=== PATIENT | female | born 1980 | race African-American/Black ===

== ENCOUNTER 2018-04-19 05:24 | Observation (INO) | payer OTHER ==
[2018-03-27 14:57] LABS: BASOPHILS # (AUTO) 0.1 (0.0-0.1); EOSINOPHILS # (AUTO) 0.2 (0.0-0.4); EOSINOPHILS % 2.9 % (0.0-6.0); HEMOGLOBIN 8.3 g/dL (12.0-16.0); LYMPHOCYTES # (AUTO) 1.8 (1.0-3.2); LYMPHOCYTES % 24.3 % (18.0-39.1); MEAN CORPUSCULAR HEMOGLOBIN 20.8 pg (28-32); MEAN CORPUSCULAR HGB CONC 29.6 g/dL (31-35); MONOCYTES # (AUTO) 0.6 (0.2-0.8); MONOCYTES % 8.4 % (4.4-11.3); NEUTROPHILS # (AUTO) 4.6 (2.1-6.9); NEUTROPHILS % 63.1 % (38.7-80.0); PLATELET COUNT 286 x10e3/uL (140-360); RED CELL DISTRIBUTION WIDTH 18.5 % (11.7-14.4)
[2018-03-27 15:17] LABS: ALANINE AMINOTRANSFERASE 12 IU/L (0-55); ALBUMIN 4.2 g/dL (3.5-5.0); ALKALINE PHOSPHATASE 77 IU/L (40-150); ANION GAP 12.6 mmol/L (8-16); BLOOD UREA NITROGEN 17 mg/dL (7-26); BUN/CREATININE RATIO 18 (6-25); CALCIUM 9.3 mg/dL (8.4-10.2); CARBON DIOXIDE 24 mmol/L (22-29); CHLORIDE 106 mmol/L (98-107); CREATININE, SERUM 0.94 mg/dL (0.57-1.11); EST GLOMERULAR FILTRATION RATE > 60 ML/MIN (60-); GLUCOSE 86 mg/dL (74-118); POTASSIUM 3.6 mmol/L (3.5-5.1); SODIUM 139 mmol/L (136-145)
[~2018-04-19] VITALS: Ht 182.9 cm; Wt 97.5 kg
--- OUTSIDE RECORDS SUMMARY | 2018-04-19 05:26 | XMS REPORT | Clinical Summary ---
Author Author [facility] Address Unknown Phone Unavailable Care Team Providers Care Family Resource Management Professor Name Role Phone Amy PCP Allergies Comments Active Allergy Reactions Severity Noted Date Meperidine 10/29/2016 Metronidazole 10/29/2016 Medications End Date Status Medication Sig Dispensed Refills Start Date Active ferrous sulfate 325 (65 Take 325 mg 0 FE) MG tablet by mouth daily with breakfast. Active phentermine 37.5 MG Take 37.5 mg 0 capsule by mouth every morning. Active Problems Not on file Social History Date Tobacco Use Types Packs/Day Years Used Never Smoker Smokeless Tobacco: Never Used Alcohol Use Drinks/Week oz/Week Comments Yes occassionally Sex Assigned at Date Recorded Not on file Industry Job Start Date Occupation Not on file Not on file Not on file Travel End Travel History Travel Start No recent travel history available. Last Filed Vital Signs Not on file Plan of Treatment Not on file Results Not on fileafter 04/18/2017 Insurance Payer Benefit Subscriber ID Type Phone Address Plan / Group [place] [facility] [employer] E EXCHANGE
--- OUTSIDE RECORDS SUMMARY | 2018-04-19 05:26 | XMS REPORT ---
Author Author [facility] Address Unknown Phone Unavailable Care Team Providers Care Ramp Service Agent Name Role Phone UNKNOWN, REFFERING PP Unavailable MICHELLE HONEYCUTT Unavailable Unavailable Problems This patient has no known problems. Allergies, Adverse Reactions, Alerts This patient has no known allergies or adverse reactions. Medications This patient has no known medications. Results Test Description Test Time Test Comments Text Results Atomic Results Result Comments CBC with Differential 2016-09-13 20:16:00 WBC (test code=WBC) 6.3 K/cumm 4.4-10.5 RBC (test code=RBC) 4.09 M/cumm 3.75-5.20 Hemoglobin (test code=HGB) 8.9 gm/dL 12.2-14.8 Hematocrit (test code=HCT) 30.6 % 36.5-44.4 MCV (test code=MCV) 74.8 fL 80-100 MCH (test code=MCH) 21.9 pg 27.0-32.5 MCHC (test code=MCHC) 29.3 g/dL 32.0-37.5 RDW (test code=RDW) 17.5 % 11.5-14.5 Platelet Count (test code=PLTCT) 275 K/cumm 140-440 MPV (test code=MPV) 8.7 fL Diff Method (test code=DIFFM) Manual Neutrophil (test code=NEUT) 69.0 % 36-70 Lymphocyte (test code=LYMPH) 20.3 % 12-44 Monocyte (test code=MONO) 8.8 % 0-11 Eosinophil (test code=EOS) 1.4 % 0-7 Basophil (test code=BASO) 0.6 % 0-2 Neutro Abs (test code=ANEUT) 4.3 K/cumm 1.6-7.4 Lymph Abs (test code=ALYMPH) 1.3 K/cumm 0.5-4.6 Elk Abs (test code=AMONO) 0.5 K/cumm 0.0-1.2 Eos Abs (test code=AEOS) 0.08 K/cumm 0.00-0.74 Baso Abs (test code=ABASO) 0.0 K/cumm 0.00-0.21 RBC Morphology (test code=RBCMRPH) Marked Hypochromia Microcytosis (test code=MICRO) Slight Hypochromic (test code=HYPO) Marked Platelet Est (test code=PLTEST) Normal Platelet on Smear
[2018-04-19] MEDS ORDERED: BUPIVACAINE 0.5%/EPI 30 ML SDV INJ ONE (06:52)
[2018-04-19] MEDS ORDERED: SODIUM CHLORIDE 0.9% 100 ML 100 ML IV ONE (07:08)
[2018-04-19] MEDS ORDERED: VASOPRESSIN INJ 20 UNIT/ML VIAL IV ONE (07:09)
[2018-04-19] MEDS ORDERED: METHYLENE BLUE 1% INJ 10 ML VIAL INJ ONE (07:31)
[2018-04-19] MEDS ORDERED: ONDANSETRON HCL INJ 2 MG/ML VIAL IV PRN (08:15)
[2018-04-19] MEDS ORDERED: ACETAMINOPHEN 325 MG TAB PO PRN (08:15)
[2018-04-19] MEDS ORDERED: MEPERIDINE HCL INJ 25 MG/ML VIAL IV PRN (08:15)
[2018-04-19] MEDS ORDERED: KETOROLAC TROMETHAMINE 30 MG/ML VIAL IM PRN (08:15)
[2018-04-19] MEDS ORDERED: KETOROLAC TROMETHAMINE 30 MG/ML VIAL ONE (10:57)
--- OUTSIDE RECORDS SUMMARY | 2018-04-19 11:01 | XMS REPORT | Clinical Summary ---
Author Author [facility] Address Unknown Phone Unavailable Care Team Providers Care Banana Grader Name Role Phone Amy PCP Allergies Comments [...] Type Phone Address Plan / Group [place] [facility] x[facility]x [employer] E EXCHANGE
--- NOTE | 2018-04-19 11:06 | NUR ---
RECEIVED REPORT FROM SAAD IN PACU. AWAITING FOR PT TO ARRIVE TO UNIT
--- NOTE | 2018-04-19 11:30 | NUR ---
RECEIVED PT TO FLOOR AA0X3. PT COMPLAINTS OF PAIN TO THE LOWER ABD 9/10 RECEIVED PAIN MED PER PACU NURSE . PT HAS AN IV TO THE LEFT AC 20 WITH LR IN 125CC.HR SITE IS CLEAN AND DRY PT HAS A [place] CATH DRAINING CLEAR YELLOW URINE PT HAS A CATHETER TO HER UTERUS COLLECTING INTO LEG BAG (MINIMAL BLOOD PRESENT) ASSISTED PT TO RR. PT HAS A BM. WILL CONTINUE TO CARE FOR PT AT THIS TIME SIDE RAILSX2, BED WHEELS LOCKED ,CALL LIGHT IS WITHIN EASY REACH, INSTRUCTED TO CALL FOR ASSISTANCE IF NEEDED
[2018-04-19 11:55] VITALS: BP 123/57
[2018-04-19 12:01] VITALS: BP 123/57
[2018-04-19] MEDS: LACTATED RINGER'S 1,000 ML IV SCH ×2 (12:26→16:43)
[2018-04-19] MEDS: HYDROCODONE/APAP 5MG-325MG TAB PO PRN (12:26)
--- NOTE | 2018-04-19 12:38 | Operative Report ---
DATE OF PROCEDURE: April 19, 2018 PREOPERATIVE DIAGNOSES 1. Dysmenorrhea. 2. Abnormal uterine bleeding. 3. Requesting reversal of tubal ligation. POSTOPERATIVE DIAGNOSES 1. Dysmenorrhea. 2. Abnormal uterine bleeding. 3. Requesting reversal of tubal ligation. PROCEDURES 1. Hysteroscopy. 2. Hysteroscopic myomectomy. 3. Reversal of tubal ligation. COMPLICATIONS: None. ESTIMATED BLOOD LOSS: 50 mL. DESCRIPTION OF PROCEDURE: The patient was taken to the OR, where general anesthesia was placed. She was prepped and draped in the normal sterile fashion. She was placed in the dorsal lithotomy position. After examination under anesthesia, a HUMI self-retaining uterine manipulator was passed through the cervix into the uterine cavity and connected to diluted methylene blue. A Pfannenstiel skin incision was made with the scalpel along the line of her previous section scar. Subcutaneous tissue was dissected with a hemostat. An Ron retractor was placed after opening the abdomen with the stretch of 2 fingers. The patient was placed in Trendelenburg position, and the Ron retractor was placed inside the pelvis. Retraction of the upper abdominal contents using moist laps. Following this, the following findings were noted: Tubal ligation on the right side was performed using probably excision of the mid portion of the tube. There was about 4 to 5 cm length of the tube left on the right tube. On the left tube, there were about 3 to 4 cm left on the portion of the left tube. Endometrium was sounded in the pelvis, and cystic masses of about 1 to 2 cm possibly from endometriosis were seen in the pelvis, removed and sent to pathology. Adhesions were between the tubes and ovaries. The uterus was considerably enlarged, about 10 weeks size, probably from adenomyosis. Scarring between the bladder and anterior wall of the uterus due to previous C-sections. The medial portion of the fallopian tube was opened with Metzenbaum scissors on both sides of the pelvis, and injection of diluted methylene blue showed free methylene blue coming out of the medial portion of the fallopian tube. The distal portion of the fallopian tube was held with a Mckay and excision of the medial portion using Metzenbaum scissors on both sides. Following this, attention was made to the vaginal portion of the procedure where the HUMI was removed, and the cervix was dilated to Hegar 8. The TruClear hysteroscope was inserted inside the uterus and saline for uterine distention showed submucosal posterior wall fibroid of about 2.5 cm. Using the Ultra Mini shaver through the hysteroscope, the leiomyoma was excised, leaving smooth endometrial cavity. Following this, the ureteric wires were threaded through the hysteroscope into the fallopian tube. With an housekeeper and laundry assistant on the other side, the tubes were guided out of the medial portion of the fallopian tube and were kept in place. Following this, the gloves were changed, and attention was made to the abdominal portion of the procedure where stents were passed through the lateral portion of the tube on both sides. The tube ends were connected together using Prolene 6-0. Following this, the mesosalpinx was approximated using Vicryl 3-0. Then the tubes were approximated using Prolene 6-0 in the 6 o'clock position followed by the 3, 9 and 12 o'clock positions without difficulty on the right side. On the left side, the tube was so short, dissection was made to release the tube from its attachment to adherence to the left ovary. Following this, the stent was threaded through the tube. The fallopian tube on the left side ends were approximated using Prolene 6-0 and suction and irrigation technique performed with warm saline. The stents were removed from the uterus from the vaginal end. The HUMI was replaced back inside the uterine cavity. Injection of the methylene blue showed the dye coming out of the fimbriated end of both tubes. Suction and irrigation again with warm saline were performed. Interceed was applied on each tube to prevent adhesions. The rectus fascia was approximated using PDS 0. The skin was closed with subcuticular Vicryl 4-0, removing the old scar. Edmonds catheter was placed inside. The uterine cavity was inflated with 10 mL of air to keep the portions of the anterior and posterior dong of the uterus away from each other, avoiding intrauterine adhesions. The patient was placed on estrogen 2 mg 3 times a day to help healing. Patient tolerated the procedure well. Lap, instrument and needle count was correct x2 at the end of the procedure. Job#: [id number]
--- NOTE | 2018-04-19 12:50 | NUR ---
SANGEETA CALDERON AT THIS TIME
--- NOTE | 2018-04-19 12:53 | NUR ---
SANGEETA CALDERON , 185 ON BAG. PT IS DUE TO VOID AT THIS TIME
[2018-04-19] MEDS ORDERED: ONDANSETRON HCL INJ 2 MG/ML VIAL ONE (13:51)
[2018-04-19] MEDS ORDERED: DEXAMETHASONE SOD PHOS INJ 4 MG/ML VIAL ONE (13:51)
[2018-04-19] MEDS ORDERED: LIDOCAINE HCL 2% LOCAL INJ 5 ML SDV VIAL INJ ONE (13:51)
[2018-04-19] MEDS ORDERED: PROPOFOL IV EMULSION 10 MG/ML 20 ML VIAL ONE (13:51)
[2018-04-19] MEDS ORDERED: ROCURONIUM BROMIDE 10 MG/ML 5ML VIAL ONE (13:51)
[2018-04-19] MEDS ORDERED: SEVOFLURANE INHAL SOLN 250 ML PEN BTL ONE (13:51)
[2018-04-19] MEDS ORDERED: MIDAZOLAM HCL 2 MG/2 ML VIAL ONE (14:42)
[2018-04-19] MEDS ORDERED: FENTANYL CITRATE/PF 100MCG/2 ML INJ ONE (14:42)
[2018-04-19] MEDS: ESTRADIOL 1 MG TAB PO SCH ×2 (15:57→20:04)
--- NOTE | 2018-04-19 16:44 | NUR ---
pt c/o pain, continues with no relief from meds. iv admin, offered po. pt stated she wants to "wait and try to manage it." will continue to monitor.
[2018-04-19 19:15] VITALS: BP 122/58
[2018-04-19 20:00] VITALS: BP 122/58
[2018-04-19] MEDS ORDERED: ZOLPIDEM TARTRATE 5 MG TAB PO PRN (21:00)
[2018-04-19 23:58] VITALS: BP 112/55
[2018-04-20] VITALS: BP 116/58
[2018-04-20 04:00] VITALS: BP 116/58
[2018-04-20] MEDS: HYDROCODONE/APAP 5MG-325MG TAB PO PRN ×2 (04:21→18:17)
[2018-04-20 05:23] LABS: HEMATOCRIT 20.6 % (34.2-44.1); HEMOGLOBIN 6.1 g/dL (12.0-16.0)
--- NOTE | 2018-04-20 05:32 | NUR ---
received critical lab values from lab. paged. awaiting call back. will continue to monitor patient.
--- NOTE | 2018-04-20 06:45 | NUR ---
rounded with the shiftman nurse, patient aware of change. Patient in no distress, call briones within reach and bed in lowest position.
[2018-04-20 07:35] VITALS: BP 110/51
[2018-04-20 08:08] VITALS: BP 110/51
--- NOTE | 2018-04-20 09:20 | NUR ---
SOCIAL WORK INITIAL ASSESSMENT Returned Goods Inspector to bedside to discuss plan of care with patient/family. CM/SW role and care transitions discussed. Anticipated discharge plan discussed along with duration of care. CM/SW discussed patients right to make decisions in care. CM/SW work hours given. 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 Name and number was also written on the patients whiteboard. Patient verbalized understanding of discussion. CM will follow-up with ongoing discharge and transition of care needs.
[2018-04-20] MEDS: ESTRADIOL 1 MG TAB PO SCH ×2 (10:10→15:27)
[2018-04-20] MEDS: LACTATED RINGER'S 1,000 ML IV SCH (10:10)
[2018-04-20 12:40] VITALS: BP 116/54
[2018-04-20 17:01] VITALS: BP 127/58
[2018-04-20] MEDS ORDERED: TYLENOL WITH C1 EACH PO (19:13)
[2018-04-20] MEDS ORDERED: ESTRADIOL1 MG PO (19:13)
--- NOTE | 2018-04-20 19:22 | NUR ---
Discharge instructions given to patient and . Patient verbalized understanding. Patient alert and oriented and in no distress. Patient to be wheeled from floor to personal auto for to drive home.
== END 2018-04-20 19:52 | disposition home or self-care (01) ==
LOC: OR 05:24 → PACU V 08:10 → IMCU 11:35
PROVIDERS: ADMIT Obstetrics & Gynecology; ATTEND Obstetrics & Gynecology
DX: N94.6 Dysmenorrhea, unspecified (principal); N93.9 Abnormal uterine and vaginal bleeding, unspecified; Z31.0 Encounter for reversal of previous sterilization; D64.9 Anemia, unspecified
CPT/HCPCS: 36415 ×2; 58559; 58561; 58750; 80053; 81025; 85014; 85018; 85025; 88304; 88305; 96361; G0378 ×2; J1100; J1885; J2001; J2250; J2405; J2704; J7120 ×2; 88307